=== PATIENT | female | born 1955 | race Caucasian/White ===

== ENCOUNTER 2019-08-20 15:36 | Emergency (ER) | payer BC, SELFPAY ==
[2019-08-20 15:55] VITALS: BP 128/70; PULSE 80; RESP 20; TEMP 37.2; O2SAT 97
--- NOTE | 2019-08-20 16:23 | ED.ABDPAIN ---
HPI - Abdominal Pain General Chief Complaint: Nausea/Vomiting/Diarrhea Stated Complaint: pain in stomach/nausea Time Seen by Provider: 08/20/19 16:23 Source: patient, family and RN notes reviewed Mode of arrival: ambulatory Limitations: no limitations History of Present Illness HPI narrative: This is a 64 years old female presented office for evaluation of right-sided abdominal pain since 1 PM. Pain described as dull with intermittent sharp at times. Associated with nauseous. Denies fever, vomiting, or constipation. Normally she has loose to diarrhea. Denies bloody stool or dark-colored stool. Denies sick contact. Denies new medication or supplement. Denies new food. No treatment prior to arrival. Admits to history of ovarian cyst and kidney stone in the past. Her symptom does not reminiscent any of those 2. Related Data Home Medications Medication Instructions Recorded Confirmed No Home Medications 08/20/19 08/20/19 Allergies Allergy/AdvReac Type Severity Reaction Status Date / Time No Known Allergies Allergy Verified 08/20/19 16:06 Review of Systems Review of Systems: Narrative: CONSTITUTIONAL: Denies fever or feeling ill ENT: Denies congestion CARDIOVASCULAR: Denies chest pain, palpitation, edema. RESPIRATORY: Denies cough GASTROINTESTINAL:Reports abdominal pain, nausea. Denies vomiting GENITOURINARY: Denies urinary symptoms SKIN: Denies rash MUSCULOSKELETAL: Denies acute back pain NEUROLOGIC: Denies lightheaded PMFSH Comments At time of signature, I agree with nursing past medical, surgical, social and family history. There is no relevant family history pertinent to the presenting complaint. Exam Narrative: Exam Narrative: GENERAL: This is a well-nourished, well-developed patient, in no apparent distress. EARS: External ears normal, auditory canals clear and without drainage, TMs normal without perforation. Hearing grossly intact. NOSE: External nose normal with no obvious nasal discharge, nares without redness, no rhinorrhea. THROAT: Mucous membranes moist, posterior pharynx clear. NECK: Neck supple, non-tender without lymphadenopathy, masses or thyromegaly. CARDIOVASCULAR: Regular rate and rhythm without murmurs, gallops, or rubs. RESPIRATORY: Clear to auscultation. Breath sounds equal bilaterally. No wheezes, rales, or rhonchi. GASTROINTESTINAL: Abdomen soft, non-tender except in right upper and lower quadrant tenderness with deep palpation, no hernia noted. Nondistended. Bowel sounds are active. No hepato-splenomegaly, or palpable masses. No guarding. SKIN: warm, intact with no suspicious lesions or rash, good texture and turgor. NEURO: awake, alert, and oriented to person, place and time. There were no obvious focal neurologic abnormalities. Steady gait BACK: Nontender without deformity or crepitance. No flank tenderness. Mohinder Coma Scale Eye Opening: Spontaneous 4 [place] Coma Scale Motor: Obeys Commands 6 [place] Coma Scale Verbal: Oriented 5 Course Vital Signs Vital signs: Vital Signs Temperature 99.0 F 08/20/19 15:55 Pulse Rate 80 08/20/19 15:55 Respiratory Rate 20 08/20/19 15:55 Blood Pressure 128/70 08/20/19 15:55 Pulse Oximetry 97 08/20/19 15:55 Temperature 99.0 F 08/20/19 15:55 Pulse Rate 80 08/20/19 15:55 Respiratory Rate 20 08/20/19 15:55 Blood Pressure 128/70 08/20/19 15:55 Pulse Oximetry 97 08/20/19 15:55 MDM - Abdominal Pain MDM Narrative Medical decision making narrative: Discharge instructions reviewed with patient, as well as provided in writing per nursing staff. The instructions also include specific and strict return/GO TO THE ER as well as f/u information. All questions have been answered, and the patient deny any further questions with discharge and discharge plan. Differential Diagnosis Differential diagnosis: Likely acute appendicitis, calculus of kidney, constipation, diverticulitis, gastroenteritis, pancreatitis and
== END 2019-08-20 16:43 | disposition home or self-care (01) ==
PROVIDERS: Emergency Provider Nurse Practitioner; PCP Internal Medicine
DX: R10.11 Right upper quadrant pain (principal); R10.31 Right lower quadrant pain; Z87.442 Personal history of urinary calculi
CPT/HCPCS: 99211; G0463

== ENCOUNTER → 2022-01-06 08:45 | Outpatient (CLI) | payer OTHER, SELFPAY ==
--- NOTE | ~2022-01-06 | MM_ITS ---
EXAMINATION: MM diagnostic char BI w adilene HISTORY: Follow-up right breast calcifications TECHNIQUE: Additional 3-D tomosynthesis images of the right breast were performed and synthetic 2-D i mages were generated. CAD analysis was submitted and interpreted. COMPARISON: Comparison to multiple prior studies sequentially, with oldest reviewed study dated 09/16. BREAST PARENCHYMAL COMPOSITION: The breasts are heterogenously dense, which may obscure small masses FINDINGS: There is a cluster of pleomorphic calcifications in the upper central aspect of the right b reast, middle third. These calcifications are new compared with prior studies. There are no suspiciou s masses or architectural distortion. IMPRESSION: 1. New cluster of pleomorphic right breast calcifications, upper central right breast. 2. Stereotactic right breast biopsy recommended. BI-RADS category 4, suspicious findings. Reviewed, dictated and finalized at location A.
== END ==
PROVIDERS: PCP Hospitalist; Visit Provider Nurse Practitioner Obstetrics & Gynecology
DX: N64.4 Mastodynia (principal); R92.8 Other abnormal and inconclusive findings on diagnostic imaging of breast
CPT/HCPCS: 77062; 77066; G0279

== ENCOUNTER → 2022-03-06 15:46 | Outpatient (CLI) | payer OTHER, SELFPAY ==
--- NOTE | ~2022-03-06 | DEXA_ITS ---
Bone Density Report Name: TIAGO ARCINIEGA Age: 66 Sex: Female Ethnicity: White Date of : 1955 Indication: postmenopausal; screening for osteoporosis; height loss; Referring Provider: Jr, Ana Shelton Study: Bone densitometry was performed. Exam Date: March 06, 2022 Accession number: [id number] Bone Density: Region BMD T-score Z-score Classification AP Spine (L2, L3, L4) 0.964 -1.0 1.0 Normal Femoral Neck (Left) 0.567 -2.5 -0.9 Osteoporosis Total Hip (Left) 0.798 -1.2 0.2 Osteopenia Femoral Neck (Right) 0.618 -2.1 -0.4 Osteopenia Total Hip (Right) 0.817 -1.0 0.3 Normal Total Hip Mean 0.808 -1.1 0.3 Osteopenia World Health Organization criteria for BMD impression classify patients as: Normal (T-score at or above -1.0), Osteopenia (T-score between -1.0 and -2.5), or Osteoporosis (T-score at or below -2.5). 10-year Fracture Risk: FRAX not reported because: Some T-score for Spine Total or Hip Total or Femoral Neck at or below -2.5 Previous Exams: Region Exam Age BMD T-score BMD Change BMD Change Date g/cm2 vs Baseline vs Previous AP Spine(L2, L3, L4) 03/06/2022 66 0.964 -1.0 -0.135 -0.135 04/29/2010 54 1.099 0.2 Total Hip(Left) 03/06/2022 66 0.798 -1.2 -0.173 -0.173 04/29/2010 54 0.971 0.2 Total Hip(Right) 03/06/2022 66 0.817 -1.0 -0.199 -0.199 04/29/2010 54 1.016 0.6 *Denotes significance at 95% confidence level, LSC for AP Spine = 0.022 g/cm2, LSC for Total Hip = 0.027 g/cm2 Clinical Information Provided by Patient: Patient maximum height was 63.0 Menopause Age: 53 Does not regularly consume dairy products Drinks caffeinated beverages Onset of menses at age 12 Number of children 2 Impression: The patient has osteoporosis, based on the Left Femoral Neck T-score. No significant bone loss was observed. Discussion: INCREASED RISK OF FRACTURE. BONE DENSITY IS UNDESIRABLY LOW AT ONE OR MORE SKELETAL SITES, CONSISTENT WITH POSTMENOPAUSAL OSTEOPOROSIS. This patient's lowest T-score meets the World Health Organization's (WHO) criteria for osteoporosis at one or more sites (T-score -2.5 or below). In untreated patients, the risk of osteoporotic fracture increases approximately two-fold for each 1.0 SD decrease in T-score. Low bone density is not the only risk factor for fracture; also consider factors such as patient's age, frailty or poor health, risk of fall
== END ==
PROVIDERS: PCP Hospitalist; Visit Provider Nurse Practitioner Obstetrics & Gynecology
DX: M85.80 Other specified disorders of bone density and structure, unspecified site (principal); M81.0 Age-related osteoporosis without current pathological fracture; M85.852 Other specified disorders of bone density and structure, left thigh
CPT/HCPCS: 77080

== ENCOUNTER → 2023-01-14 12:39 | Outpatient (CLI) | payer OTHER, SELFPAY ==
--- NOTE | ~2023-01-14 | MM_ITS ---
EXAMINATION: MM screening char BI w adilene HISTORY: Screening mammogram TECHNIQUE: Craniocaudal and mediolateral oblique 3-D tomosynthesis images were obtained and synthetic 2-D images were generated. CAD analysis was submitted and interpreted. COMPARISON: 01/06/2022, 02/19/2019, 12/13/2016 BREAST PARENCHYMAL COMPOSITION: The breasts are heterogeneously dense, which may obscure small masses . FINDINGS: Scattered benign-appearing calcifications are present. No suspicious mass, calcification, o r architectural distortion are identified in either breast to suggest malignancy. There has been no s uspicious interval change. IMPRESSION: 1. No mammographic evidence of malignancy. 2. Recommend routine screening mammography in one year. BI-RADS Category 2: Benign finding(s). Reviewed, dictated and finalized at location A.
== END ==
PROVIDERS: PCP Nurse Practitioner Obstetrics & Gynecology; Visit Provider Nurse Practitioner Obstetrics & Gynecology
DX: Z12.31 Encounter for screening mammogram for malignant neoplasm of breast (principal)
CPT/HCPCS: 77063; 77067

== ENCOUNTER 2024-03-15 09:43 | Outpatient (CLI) | payer OTHER, SELFPAY ==
--- NOTE | ~2024-03-15 | MMUS_ITS ---
EXAMINATION: MM diagnostic char BI w adilene, US breast RT limited HISTORY: Comparison to multiple prior studies sequentially, with oldest reviewed study dated 09/17/19 15. TECHNIQUE: Additional 3-D tomosynthesis images of Not dense: There are scattered areas of fibroglandu lar density. were performed and synthetic 2-D images were generated. CAD analysis was submitted and i nterpreted. High resolution Limited right breast ultrasound was performed. COMPARISON: No prior studies for comparison. BREAST PARENCHYMAL COMPOSITION: Not dense: There are scattered areas of fibroglandular density. FINDINGS: MAMMOGRAPHIC FINDINGS: There are no suspicious masses, calcifications or architectural distortion in either breast to sugges t malignancy. There are benign bilateral breast calcifications. ULTRASOUND: Limited right breast ultrasound: Oral heterogeneous echotexture without focal solid or cystic mass. IMPRESSION: 1. No evidence for malignancy in either breast. 2. Routine yearly screening mammogram and regular clinical breast examination are recommended. BI-RADS Category 2: Benign finding(s). Reviewed, dictated and finalized at location B. IMPRESSION: 1. No evidence for malignancy in either breast. 2. Routine yearly screening mammogram and regular clinical breast examination a re recommended. BI-RADS Category 2: Benign finding(s).
== END 2024-03-15 09:44 | disposition home or self-care (01) ==
LOC: MICIMG 09:45
PROVIDERS: PCP Hospitalist; Visit Provider Advanced Practice Midwife
DX: N64.4 Mastodynia (principal)
CPT/HCPCS: 76642; 77062; 77066; G0279

== ENCOUNTER 2025-04-06 10:00 | Outpatient (RCR) | payer MEDICARE, SELFPAY ==
--- NOTE | 2025-03-06 15:26 | OPREHPOC ---
Outpatient Therapy Plan of Care This is a Multidisciplinary Plan of Care that may contain components documented by all disciplines (PT, OT, and ST.) PT Problem 1 PT Problem #1 Knowledge Deficit PT Goal 1 Goal / Goal Update 1. Patient will perform independent HEP Target Visit 2 PT Problem 2 PT Problem #2 Impaired Functional ADLs PT Goal 1 Goal / Goal Update 1. Patient will report no urinary incontinence for 1 month 2. Patient will report no fecal incontinence for 1 month 3. Patient will report not having to lerner to the bathroom for 1 month Target Visit 5 PT Problem 3 PT Problem #3 Impaired Strength PT Goal 1 Goal / Goal Update 1. Bilateral hip abduction to 5/5 Target Visit 5
--- NOTE | 2025-03-06 15:26 | PTOPEVAL1 ---
Assessment and note entered by Barb Wright DPT Evaluation Information Assessment Status Evaluation Diagnosis n81.9 Subjective Information Pt reports she has a prolapse and has a difficult time controlling b/b. Has been worsening for a few months, possibly a year. Voids more than 10 times a day and 2 times at night. Can hold urge to void up to 30 minutes. Reports no stress incontinence but has had urge incontinence while on the way to the toilet, a few times a week. Has had to change clothes at times. Denies pain with urination. BM 2 times a day usually. Fecal incontinence a few times a week. Denies pain with BM. Can feel prolapse while wiping but denies pain. Denies history of pelvic pain. Pt has been 2 times, delivered vaginally both times. History of uterine fibroid. Pt has diabetes. No other SQUIRREL MAN or b/b history. Pt may avoid going out in the community due to fecal incontinence. Patient goal: improve strength and improve control Returns to MD in 1 year. Reported Pain Level Pain Score 0: Self Report Assessment PT Clinical Summary The patient is presenting to skilled therapy with diagnosis of pelvic organ prolapse and reports urinary and fecal urgency and incontinence. She demonstrates decreased hip and core strength and likely decreased pelvic floor strength (full assessment to be performed next visit pending patient consent) which are contributing to her symptoms and difficulty performing all tasks. She will benefit from therapy to improve strength in order to reduce symptoms as well as to educate in urge suppression strategies in order to return to full function. Plan of Care Interventions Manual Therapy,Neuro Re-education,Patient/ Caregiver Education,Therapeutic Activities, Therapeutic Exercise PT Services Indicated Yes Treatment Frequency and 1 time a week for 5 visits Duration These treatments will address the objective and functional deficits as defined above. The patient will be advanced safely and appropriately in order for the patient to progress towards his/her prior level of function. Additional exercises will be introduced and as well as a comprehensive home exercise program upon discharge, if needed, ?to ensure carryover of functional gains achieved in the clinic. This treatment plan has been reviewed and agreement upon by the patient.
== END 2025-06-04 23:59 | disposition home or self-care (01) ==
LOC: ANHGOSHPT 10:00
PROVIDERS: PCP Hospitalist; Visit Provider Nurse Practitioner
DX: N81.9 Female genital prolapse, unspecified (principal)
CPT/HCPCS: 97112; 97161; 97530